=== PATIENT | female | born 1985 | race Caucasian/White ===

== ENCOUNTER 2020-05-15 17:14 | Outpatient (CLI) | payer BC ==
[2020-05-15 18:14] LABS: ABSOLUTE EOSINOPHILS # (AUTO) 0.1 10^3/uL (0.0-0.6); ABSOLUTE LYMPHOCYTES (AUTO) 1.9 10^3/uL (0.5-4.7); ABSOLUTE MONOCYTES (AUTO) 0.7 10^3/uL (0.1-1.4); ABSOLUTE NEUT (AUTO) 8.9 10^3/uL (1.7-8.2); BASOPHILS % (AUTO) 0.3 % (0-2); EOSINOPHILS % (AUTO) 0.9 % (0-6); HEMATOCRIT 32.4 % (36.0-47.0); HEMOGLOBIN 11.2 g/dL (12.0-15.5); MEAN CORPUSCULAR HEMOGLOBIN 30.4 pg (27.0-33.4); MEAN CORPUSCULAR HGB CONC 34.6 g/dL (32.0-36.0); MEAN CORPUSCULAR VOLUME 88 fl (80-97); MONOCYTES % (AUTO) 5.9 % (3-13); PLATELET COUNT 146 10^3/uL (150-450); RED CELL DISTRIBUTION WIDTH 13.1 % (11.5-14.0); SEGMENTED NEUTROPHILS % (AUTO) 76.9 % (42-78); TOTAL CELLS COUNTED % (AUTO) 100 %; WHITE BLOOD COUNT 11.6 10^3/uL (4.0-10.5)
[2020-05-15 18:30] LABS: ALBUMIN 3.5 g/dL (3.5-5.0); ALKALINE PHOSPHATASE 318 U/L (38-126); ANION GAP 7 (5-19); ASPARTATE AMINO TRANSFERASE 128 U/L (14-36); BILIRUBIN,DIRECT 0.3 mg/dL (0.0-0.4); BILIRUBIN,TOTAL 0.5 mg/dL (0.2-1.3); BLOOD UREA NITROGEN 7 mg/dL (7-20); CALCIUM 9.3 mg/dL (8.4-10.2); CARBON DIOXIDE 23 mmol/L (22-30); CHLORIDE 104 mmol/L (98-107); GLUCOSE 123 mg/dL (75-110); POTASSIUM 3.7 mmol/L (3.6-5.0); TOTAL PROTEIN 6.7 g/dL (6.3-8.2)
[2020-05-15 18:38] LABS: APPEARANCE,URINE SLIGHTLY-CLOUDY; BILIRUBIN,URINE NEGATIVE (NEGATIVE); COLOR,URINE YELLOW; GLUCOSE, URINE NEGATIVE (NEGATIVE); KETONES,URINE 20 mg/dL (NEGATIVE); LEUKOCYTE ESTERASE,URINE SMALL (NEGATIVE); NITRITE,URINE NEGATIVE (NEGATIVE); PROTEIN,URINE NEGATIVE (NEGATIVE); URINE SPECIFIC GRAVITY 1.012; UROBILINOGEN,URINE NEGATIVE mg/dL (<2.0)
[2020-05-15 18:53] LABS: URINE AMPHETAMINES SCREEN NEGATIVE; URINE BARBITURATES SCREEN NEGATIVE; URINE BENZODIAZEPINES SCREEN NEGATIVE; URINE COCAINE SCREEN NEGATIVE; URINE MARIJUANA (THC) SCREEN NEGATIVE; URINE METHADONE SCREEN NEGATIVE; URINE PHENCYCLIDINE SCREEN NEGATIVE
--- NOTE | 2020-05-15 19:08 | Non Stress Test Report ---
Non Stress Test Datetime Report Generated by CPN: 05/15/2020 19:08 DEMOGRAPHIC EGA NST: 37.1 INDICATION Indication for Study (NST) Other: IUP at 37.1 VITAL SIGNS Temperature - NST: 97.3 Pulse - NST: 109 RESP - NST: 18 NBPSYS NST: 119 NBPDIA NST: 76 MONITORING Monitor Explained: Monitor Explained; Test Explained; Patient Verbalized Understanding Time on Monitor: 05/15/2020 17:33 Time off Monitor: 05/15/2020 18:50 NST Duration: 77 NST INTERVENTIONS NST Interventions: PO Hydration Physician Notified NST: Dr. Tan BABY A: [id number] BABY A Movement : Present Contraction Frequency : Irreg FHR Baseline : 130 Accelerations : 15X15 Decelerations : None Variability : Moderate 6-25bpm NST Review: Meets Criteria for Reactive NST NST Review and Verified By : SAutry NST Results: Reactive NST COMMENTS NST Comments: Dr. Tan reviewed strip NST REPORT Report Trigger: Send Report
[2020-05-15 20:50] LABS: CHLAM PCR NOT DETECTED (NOT DETECT)
[2020-05-17 06:37] LABS: HEPATITIS C VIRUS AB <0.1 s/co ratio (0.0-0.9)
[2020-05-17 07:44] LABS: HEPATITS B SURFACE ANTIGEN Negative (Negative)
== END 2020-05-15 19:37 | disposition home or self-care (01) ==
LOC: LC 17:14
PROVIDERS: ATTEND Obstetrics & Gynecology
DX: O47.1 False labor at or after 37 completed weeks of gestation (principal); Z88.1 Allergy status to other antibiotic agents; Z87.891 Personal history of nicotine dependence; Z3A.37 37 weeks gestation of pregnancy; Z91.018 Allergy to other foods; Z11.4 Encounter for screening for human immunodeficiency virus [HIV]
CPT/HCPCS: 36415; 59025; 80053; 80307; 81005; 82239; 85025; 86592; 86701; 86762; 86803; 86804; 87081; 87340; 87491; 87591

== ENCOUNTER 2020-05-16 07:45 | Inpatient (IN) | payer BC ==
[2020-05-16] MEDS ORDERED: RINGERS SOLUTION,LACTATED 500 ML IV ONE (08:10)
[2020-05-16] MEDS ORDERED: PENICILLIN G POTASSIUM 5,000,000 UNIT in DEXTROSE 5%-WATER 100 ML IV ONE (08:10)
[2020-05-16] MEDS ORDERED: RINGERS SOLUTION,LACTATED 1,000 ML IV ONE (08:10)
[2020-05-16 08:49] LABS: AMORPHOUS SEDIMENT,URINE TRACE /HPF; APPEARANCE,URINE CLOUDY; BILIRUBIN,URINE NEGATIVE (NEGATIVE); COLOR,URINE YELLOW; GLUCOSE, URINE NEGATIVE (NEGATIVE); KETONES,URINE NEGATIVE (NEGATIVE); LEUKOCYTE ESTERASE,URINE NEGATIVE (NEGATIVE); NITRITE,URINE NEGATIVE (NEGATIVE); PROTEIN,URINE NEGATIVE (NEGATIVE); URINE SPECIFIC GRAVITY 1.008; UROBILINOGEN,URINE NEGATIVE mg/dL (<2.0)
[2020-05-16] MEDS ORDERED: PENICILLIN G-K 5 MILLION UNIT VIAL ONE (08:59)
[2020-05-16] MEDS ORDERED: OXYTOCIN 10 UNIT/ML VIAL ONE (08:59)
[2020-05-16] MEDS ORDERED: MISOPROSTOL 0.2 MG TABLET ONE (08:59)
[2020-05-16] MEDS ORDERED: LIDOCAINE 1% INJ-PF (10 MG/ML) 30 ML SDV ONE (08:59)
[2020-05-16] MEDS ORDERED: OXYTOCIN/0.9 % SODIUM CHLORIDE 30 UNIT/500 ML RTUINJ ONE (08:59)
[2020-05-16] MEDS ORDERED: OXYTOCIN/0.9 % SODIUM CHLORIDE 30 UNIT/500 ML RTUINJ IV PRN (09:01)
[2020-05-16 09:20] LABS: URINE AMPHETAMINES SCREEN NEGATIVE; URINE BENZODIAZEPINES SCREEN NEGATIVE; URINE COCAINE SCREEN NEGATIVE; URINE MARIJUANA (THC) SCREEN NEGATIVE; URINE METHADONE SCREEN NEGATIVE; URINE PHENCYCLIDINE SCREEN NEGATIVE
[2020-05-16 09:23] LABS: URINE BARBITURATES SCREEN NEGATIVE
[2020-05-16 09:26] LABS: ABSOLUTE EOSINOPHILS # (AUTO) 0.2 10^3/uL (0.0-0.6); ABSOLUTE LYMPHOCYTES (AUTO) 1.7 10^3/uL (0.5-4.7); ABSOLUTE MONOCYTES (AUTO) 0.9 10^3/uL (0.1-1.4); ABSOLUTE NEUT (AUTO) 7.6 10^3/uL (1.7-8.2); BASOPHILS % (AUTO) 0.4 % (0-2); EOSINOPHILS % (AUTO) 1.5 % (0-6); HEMOGLOBIN 10.8 g/dL (12.0-15.5); MEAN CORPUSCULAR HEMOGLOBIN 30.4 pg (27.0-33.4); MEAN CORPUSCULAR HGB CONC 34.9 g/dL (32.0-36.0); MEAN CORPUSCULAR VOLUME 87 fl (80-97); PLATELET COUNT 133 10^3/uL (150-450); RED BLOOD COUNT 3.57 10^6/uL (3.72-5.28); RED CELL DISTRIBUTION WIDTH 12.8 % (11.5-14.0); SEGMENTED NEUTROPHILS % (AUTO) 73.1 % (42-78); TOTAL CELLS COUNTED % (AUTO) 100 %; WHITE BLOOD COUNT 10.4 10^3/uL (4.0-10.5)
--- NOTE | 2020-05-16 09:30 | Admission Physical ---
Datetime Report Generated by CPN: 05/16/2020 09:30 CURRENT ADMISSION Chief Complaint: Sent from OB Office for Evaluation and Treatment - Please Specify Chief Complaint Other: itching all over Indication for Induction: Other Indication for Induction- Other: cholestasis of Admit Impression : Term, Intrauterine ; No Active Labor Admit Plan: Admit to Unit; Initiate Labor Induction Protocol ALLERGIES Medication Allergies: Yes Medication Allergies: Sulfa (Sulfonamide Antibiotics) (05/16/2020); pistachio nut (05/16/2020) Latex: No Latex Allergies OBSTETRICAL HISTORY EDC: 06/04/2020 00:00 : 3 Para: 1 Term: 1 : 0 SAB: 0 IAB: 1 Ectopic: 0 Livin Cesareans: 0 VBACs: 0 Multiple Births: 0 Gestational Diabetes: No Rh Sensitization: No Incompetent Cervix: No SHERRY: No Infertility: No ART Treatment: No Uterine Anomaly: No IUGR: No Hx Previous C/S: No Macrosomia: No Hx Loss/Stillborn: No PIH: No Hx : No Placenta Previa/Abruption: No Depression/PP Depression: No PTL/PROM: No Post Hemorrhage: No Current Procedures: Ultrasound Obstetrical History Comments: G1-EAB G2- at 37.1 G3-Current SEE RECORDS Alcohol: No Marijuana : No Cocaine: No Other Illicit Drugs: No Cigarettes: Former Smoker. [id number] MEDICAL HISTORY Diabetes: No Blood Transfusion: No Pulmonary Disease (Asthma, TB): No Breast Disease: No Hypertension: No Enterprise Software Engineer Surgery: No Heart Disease: No Hosp/Surgery: No Autoimmune Disorder: Yes Anesthetic Complications: No Kidney Disease: No Abnormal Pap Smear: No Neuro/Epilepsy: No Psychiatric Disorders: No Other Medical Diseases: No Hepatitis/Liver Disease: No Significant Family History: No Varicosities/Phlebitis: No Trauma/Violence : No Thyroid Dysfunction: Yes Medical History Comments: Graves disease; INFECTIOUS HISTORY Gonorrhea: No Genital Herpes: No Chlamydia: No Tuberculosis: No Syphilis: No Hepatitis: No HIV/AIDS Exposure: No Rash or Viral Illness: No HPV: Yes PHYSICAL EXAM General: Normal HEENT: Normal Neurologic: Normal Thyroid: Deferred Heart: Normal Lungs: Normal Breast: Deferred Back: Normal Abdomen: Normal Genitourinary Exam: Normal Extremities: Normal DTRs: Deferred Pelvic Type: Adequate Physical Exam Comments: pelvis proven to 6#13 Vital Signs: Reviewed VAGINAL EXAM Dilatation: 2 Effacement: 75 Station: -2 Contraction Comments: irreg MEMBRANES Pooling: Negative Membranes: Intact FETUS A EGA: 37.2 Monitoring: External US FHR- Baseline: 135 Variability: Moderate 6-25bpm Accelerations: 15X15 Decelerations: None Estimated Weight (gm): 3200 Presentation: Vertex Presentation- Other: by SVE Admit Comment: usually seen at [facility], started c/o itching last week and had elevated bile acids. sent for labs yesterday and found to have elevated liver enzymes. GBS pending, agrees to prophylaxis and induction of labor. P: start pitocin and penicillin, anticipate PLANS FOR LABOR AND DELIVERY Labor and Delivery: None Pain Management: Natural Feeding Preference: Breast Benefit of Breast Feed Discussed: Yes Circumcision: N/A INFORMED CONSENT Assignment: Wong Thompson MD Signature: with User ID: [email or web address] : with User ID: [email or web address]
[2020-05-16 09:42] LABS: ALBUMIN 3.2 g/dL (3.5-5.0); ALKALINE PHOSPHATASE 287 U/L (38-126); ANION GAP 6 (5-19); ASPARTATE AMINO TRANSFERASE 103 U/L (14-36); BILIRUBIN,DIRECT 0.3 mg/dL (0.0-0.4); BILIRUBIN,TOTAL 0.5 mg/dL (0.2-1.3); BLOOD UREA NITROGEN 5 mg/dL (7-20); CALCIUM 9.4 mg/dL (8.4-10.2); CARBON DIOXIDE 22 mmol/L (22-30); CHLORIDE 106 mmol/L (98-107); GLUCOSE 92 mg/dL (75-110); POTASSIUM 3.8 mmol/L (3.6-5.0); TOTAL PROTEIN 6.3 g/dL (6.3-8.2); URIC ACID 3.2 mg/dL (2.5-6.2)
[2020-05-16] MEDS: PENICILLIN G POTASSIUM 2,500,000 UNIT in DEXTROSE 5%-WATER 50 ML IV SCH ×3 (12:57→21:18)
[2020-05-16] MEDS ORDERED: DINOPROSTONE 10 MG VAGINAL INSERT.SR PV PRN (16:57)
[2020-05-16] MEDS ORDERED: DINOPROSTONE 10 MG VAGINAL INSERT.SR ONE (18:06)
[2020-05-16] MEDS ORDERED: ZOLPIDEM TARTRATE 5 MG TABLET PO PRN (18:23)
[2020-05-16] MEDS ORDERED: HYDROXYZINE PAMOATE 50 MG CAPSULE PO ONE (18:23)
[2020-05-16] MEDS ORDERED: HYDROXYZINE PAMOATE 50 MG CAPSULE ONE (18:26)
[2020-05-16] MEDS ORDERED: RINGERS SOLUTION,LACTATED 1,000 ML IV PRN (19:00)
[2020-05-16] MEDS ORDERED: ZOLPIDEM TARTRATE 5 MG TABLET ONE (20:28)
[2020-05-16] MEDS ORDERED: MAG HYDROX/AL HYDROX/SIMETH SUSP 30 ML UDCUP ONE (20:29)
[2020-05-16] MEDS ORDERED: MAG HYDROX/AL HYDROX/SIMETH SUSP 30 ML UDCUP PO ONE (20:31)
[2020-05-17] MEDS: PENICILLIN G POTASSIUM 2,500,000 UNIT in DEXTROSE 5%-WATER 50 ML IV SCH ×3 (00:39→08:45)
[2020-05-17] MEDS ORDERED: OXYTOCIN/0.9 % SODIUM CHLORIDE 30 UNIT/500 ML RTUINJ ONE (04:34)
[2020-05-17] MEDS ORDERED: OXYTOCIN/0.9 % SODIUM CHLORIDE 30 UNIT/500 ML RTUINJ IV PRN ×2 (06:00→14:15)
--- NOTE | 2020-05-17 11:33 | L&D Progress Notes ---
PROGRESS NOTES Datetime Report Generated by CPN: 05/17/2020 11:33 PROGRESS NOTE Impression: Normal Progression of Labor Procedures: Artificial ROM; Sterile Vag Exam Plan: Induction Vital Signs : Reviewed; Within Normal Limits Comment: here for IOL due to cholestasis in w/ elevated liver enzymes. Pt on day #2 of IOL, doing well, no complaints, Pitocin infusing, GBS negative. VE 3/50/-2. AROM w/ moderate meconium stained fluid. Will plan to recheck CBC/ CMP and watch labwork. Pt may have an epidural if she desires. Continue w/ Pitocin. Attending MD is Dr Mclain. VAGINAL EXAM Dilatation: 2 Effacement: 75 Station: -2 Contractions: irreg LAST VAGINAL EXAM-NURSING Nursing Exam Dilitation: 3.0 Nursing Exam Effacement: 50 Nursing Exam Station: -2 Nursing Exam Contractions: artifact present MEMBRANES Pooling: Negative Membranes: Ruptured Amniotic Fluid Color: Meconium, Heavy FETUS A FHR - Baseline: 140 Monitoring: External US Variability: Moderate 6-25bpm Accelerations: 15X15 Decelerations: None FHR Category: Category I : 37w2d Estimated Weight (gm): 3200 Presentation: Vertex Presentation- Other: by SVE SIGNATURE SIGNATURE: [id number];[id number];[id number] Assignment: Ara Mclain MD Signature: with User ID: [email or web address] : with User ID: [email or web address]
[2020-05-17 11:49] LABS: ABSOLUTE BASOPHILS # (AUTO) 0.1 10^3/uL (0.0-0.2); ABSOLUTE EOSINOPHILS # (AUTO) 0.1 10^3/uL (0.0-0.6); ABSOLUTE LYMPHOCYTES (AUTO) 1.8 10^3/uL (0.5-4.7); ABSOLUTE MONOCYTES (AUTO) 0.8 10^3/uL (0.1-1.4); ABSOLUTE NEUT (AUTO) 8.2 10^3/uL (1.7-8.2); BASOPHILS % (AUTO) 0.7 % (0-2); EOSINOPHILS % (AUTO) 1.3 % (0-6); HEMATOCRIT 32.2 % (36.0-47.0); HEMOGLOBIN 11.1 g/dL (12.0-15.5); LYMPHOCYTES % (AUTO) 16.1 % (13-45); MEAN CORPUSCULAR HEMOGLOBIN 30.3 pg (27.0-33.4); MEAN CORPUSCULAR HGB CONC 34.6 g/dL (32.0-36.0); MEAN CORPUSCULAR VOLUME 88 fl (80-97); MONOCYTES % (AUTO) 7.4 % (3-13); PLATELET COUNT 140 10^3/uL (150-450); RED BLOOD COUNT 3.67 10^6/uL (3.72-5.28); RED CELL DISTRIBUTION WIDTH 13.4 % (11.5-14.0); SEGMENTED NEUTROPHILS % (AUTO) 74.5 % (42-78); TOTAL CELLS COUNTED % (AUTO) 100 %; WHITE BLOOD COUNT 10.9 10^3/uL (4.0-10.5)
[2020-05-17] MEDS ORDERED: HYDROXYZINE PAMOATE 50 MG CAPSULE PO ONE (12:08)
[2020-05-17] MEDS ORDERED: HYDROXYZINE PAMOATE 50 MG CAPSULE ONE (12:10)
[2020-05-17 12:15] LABS: ALBUMIN 3.3 g/dL (3.5-5.0); ALKALINE PHOSPHATASE 359 U/L (38-126); ANION GAP 5 (5-19); ASPARTATE AMINO TRANSFERASE 106 U/L (14-36); BILIRUBIN,DIRECT 0.5 mg/dL (0.0-0.4); BILIRUBIN,TOTAL 0.9 mg/dL (0.2-1.3); BLOOD UREA NITROGEN 7 mg/dL (7-20); CALCIUM 8.9 mg/dL (8.4-10.2); CARBON DIOXIDE 24 mmol/L (22-30); CHLORIDE 103 mmol/L (98-107); GLUCOSE 86 mg/dL (75-110); POTASSIUM 4.1 mmol/L (3.6-5.0); TOTAL PROTEIN 6.6 g/dL (6.3-8.2)
[2020-05-17] MEDS ORDERED: EPHEDRINE SULFATE INJ 50 MG/1 ML AMPULE ONE (13:23)
[2020-05-17] MEDS ORDERED: FENTANYL/BUPIVACAINE/NS/PF 0 MCG/0 ML RTUINJ EPI ONE (13:23)
[2020-05-17] MEDS ORDERED: ROPIVACAINE HCL 0.2% INJ/PF (2 MG/ML) 20 ML SDV ONE (13:24)
[2020-05-17] MEDS ORDERED: DIPH/PERTUSS(ACELL)/TETANUS VAC/PF 0.5 ML SYR (>=10YO) IM PRN (14:15)
[2020-05-17] MEDS ORDERED: DIBUCAINE 1% OINTMENT 28 GM TP PRN (14:15)
[2020-05-17] MEDS ORDERED: ACETAMINOPHEN WITH CODEINE #3 TABLET PO PRN ×2 (14:15)
[2020-05-17] MEDS ORDERED: ZOLPIDEM TARTRATE 5 MG TABLET PO PRN (14:15)
[2020-05-17] MEDS ORDERED: MEASLES,MUMPS&RUBELLA VACC/PF 0.5 ML VIAL SUBCUT PRN (14:15)
[2020-05-17] MEDS ORDERED: ACETAMINOPHEN 325 MG TABLET PO PRN (14:15)
[2020-05-17] MEDS ORDERED: MAGNESIUM HYDROXIDE SUSP 30 ML UDCUP PO PRN (14:15)
[2020-05-17] MEDS ORDERED: VARICELLA VACC/PF (1350 UNIT/0.5 ML) 0.5 ML VIAL SUBCUT PRN (14:15)
[2020-05-17] MEDS ORDERED: FAMOTIDINE 20 MG TABLET PO PRN (14:15)
[2020-05-17] MEDS ORDERED: ACETAMINOPHEN 650 MG SUPP.RECT PR PRN (14:15)
[2020-05-17] MEDS ORDERED: DIPHENHYDRAMINE HCL 25 MG CAPSULE PO PRN (14:15)
[2020-05-17] MEDS ORDERED: PSEUDOEPHEDRINE HCL 30 MG TABLET PO PRN (14:15)
[2020-05-17] MEDS ORDERED: BENZOCAINE/MENTHOL AEROSOL SPRAY 56 ML TOP PRN (14:15)
[2020-05-17] MEDS ORDERED: GLYCERIN/WITCH HAZEL LEAF 1 EACH MED..WIPE TP PRN (14:15)
[2020-05-17] MEDS ORDERED: MAG HYDROX/AL HYDROX/SIMETH SUSP 30 ML UDCUP PO PRN (14:15)
[2020-05-17] MEDS ORDERED: IBUPROFEN 800 MG TABLET ONE (14:35)
[2020-05-17] MEDS: IBUPROFEN 800 MG TABLET PO SCH ×2 (14:37→21:33)
--- NOTE | 2020-05-17 15:57 | Delivery Summary ---
Del Sum A-C Datetime Report Generated by CPN: 05/17/2020 15:57 DELIVERY PERSONNEL DELIVERY PERSONNEL: [id number] Delivery Doctor:: Rachel Horton CNM Labor and Delivery Nurse:: Tasha Aldrich RNrn oncology Nurse:: MARTIN Brambila Nursery Nurse:: Carmen Mckinley RN Nursery Nurse:: Maureen Miranda RN Stock Replenisher/DRUMS TEACHER: Indigo Reyna, DAIRY DEPARTMENT MANAGER MATERNAL INFORMATION Delivery Anesthesia: None Medications After Delivery: Pitocin 30 Units in 500ml NS/D5W Maternal Complications: Other Complication Details: cholestasis Provider Comments: of VFI, NC x 1, easily reduced. Baby vigorous and attempting to cry. Placed on pts abdoman, mouth bulb suctioned. NBN at bedside. Cord clamped and cut after one minute. Cord blood collected. Placenta S/C/I w/ meconium staining noted. Will send to pathology. hemostatic 1st degree laceration, no repair needed. FF w/ decreased lochia, IV Pitocin infusing. Apgars 8,9. Mother and baby in stable condition, plans to breastfeed. Attending MD is Dr Mclain LABOR SUMMARY EDC: 06/04/2020 00:00 No. Babies in Womb: 1 Attempted: No Labor Anesthesia: None LABOR INFORMATION Reason for Induction: Other Reason for Induction- Other: cholestasis Onset of Labor: 05/17/2020 10:30 Complete Dilatation: 05/17/2020 13:35 Cervical Ripening Agents: Cervidil Oxytocin: Induction Group B Beta Strep: 1 NO GROUP B STREPTOCOCCUS RECOVERED Antibiotics Time of Last Dose: 05/17/2020 08:45 Name of Antibiotic Given: Penicillin G Steroids Given: None Reason Steroids Not Administered: Not Applicable MEMBRANES Membranes Rupture Method: Artificial Rupture of Membranes: 05/17/2020 11:21 Length of Rupture (hr): 2.75 Amniotic Fluid Color: Moderate Meconium Amniotic Fluid Amount: Moderate Amniotic Fluid Odor: Normal STAGES OF LABOR Stage 1 hr: 3 Stage 1 min: 5 Stage 2 hr: 0 Stage 2 min: 31 Stage 3 hr: 0 Stage 3 min: 4 Total Time in Labor hr: 3 Total Time in Labor min: 40 VAGINAL DELIVERY Episiotomy: None Laceration #1: Perineal Laceration Extension #1: First Degree Laceration Repair: No Laceration Repair Note: no repair needed, hemostatic Sponge Count Correct: N/A Sharps Count Correct: N/A CSECTION DELIVERY Primary Indication: N/A Secondary Indication: N/A CSection Incidence: N/A Labor: N/A Elective: N/A CSection Incision: N/A BABY A INFORMATION Infant Delivery Date/Time: 05/17/2020 14:06 Method of Delivery: Vaginal Nurse Controlled Delivery: No Born in Route : No : N/A Forceps: N/A Vacuum Extraction: N/A Shoulder Dystocia : No PRESENTATION/POSITION BABY A Presentation: Cephalic Cephalic Presentation: Vertex Breech Presentation: N/A PLACENTA INFORMATION BABY A Placenta Delivery Time : 05/17/2020 14:10 Placenta Method of Delivery: Spontaneous Placenta Status: Delivered SCORES BABY A Heart Rate 1 min: >100 bpm Resp Effort 1 min: Good Cry Reflex Irritability 1 min: Cough or Sneeze or Pulls Away Muscle Tone 1 min: Active Motion Color 1 min: Blue/Pale SCORE 1 MIN: 8 Heart Rate 5 min: >100 bpm Resp Effort 5 min: Good Cry Reflex Irritability 5 min: Cough or Sneeze or Pulls Away Muscle Tone 5 min: Active Motion Color 5 min: Body [place], Extremities Blue SCORE 5 MIN: 9 INFANT INFORMATION BABY A Gestational Age at Delivery: 37.3 Gestational Status: Early Term- 37- 38.6 Weeks Infant Outcome : Liveborn Infant Condition : Stable Sex: Female IDENTIFICATION BABY A Infant Verification Date/Time: 05/17/2020 14:36 ID Band Number: [id number] Mother's Name Verified: Yes RN Verifying Infant: Whitney Cohen RN Additional Verifying Personnel: Anand Aldrich RN WEIGHT/LENGTH BABY A Birthweight (gm): 3320 Weight (lb): 7 Weight (oz): 5 Length (in): 20.00 Length (cm): 50.80 CORD INFORMATION BABY A No. Cord Vessels: 3 Nuchal Cord : Around Neck x1, Loose Cord Blood Taken: Yes-For Storage (Mom's Blood type +) Suction: Mouth; Nose; Pharynx ASSESSMENT BABY A Infant Respirations: Appears Normal Skin to Skin: Yes Nail Tech/ALS Called : No Care By: Nursery Nurse Transferred To: Remains with Mother BABY B INFORMATION : N/A SIGNATURES Assignment: Ara Mclain MD Signature: with User ID: [email or web address] : with User ID: [email or web address] : I was personally available for consultation and serving as supervising physician for the MLP.
--- NOTE | 2020-05-17 15:57 | Birth Certificate Data ---
Cert Data Datetime Report Generated by CPN: 05/17/2020 15:57 CERTIFICATE DATA Delivery Provider: Rachel Horton CNM (05/15/2020 17:34:Tasha Aldrich RN) 47a. Care: Yes (05/15/2020 17:34:Mony Worthy RN) 47b. Date of First Visit: 01/05/2020 00:00 (05/15/2020 17:34:Mony Worthy RN) 47c. Date of Last Visit: 05/15/2020 00:00 (05/15/2020 17:34:Mony Worthy RN) 47d. Number of Visits: 11 (05/15/2020 17:34:Mony Worthy RN) 48a. Number of Prev Live Births: 1 (05/15/2020 17:34:Mony Worthy RN) 48b. Now Livin (05/15/2020 17:34:Mony Worthy RN) 48c. Live Births Now : 0 (05/15/2020 17:34:QS system process) 48d. Date of Last Live : 10/29/2014 00:00 (05/15/2020 17:34:Mony Worthy RN) 48e. Losses: 1 (05/15/2020 17:34:Mony Worthy RN) 48f. Date of Last Preg Loss: 04/11/2009 00:00 (05/15/2020 17:34:Mony Worthy RN) RISK FACTORS IN THIS 49a. Diabetes: No (05/15/2020 17:34:Mony Worthy RN) 49b. Hypertension: No (05/15/2020 17:34:Mony Worthy RN) 49c. Previous Births: 0 (05/15/2020 17:34:Mony Worthy RN) 49d. Stillborns: No (05/15/2020 17:34:Mony Worthy RN) 49d. IUGR: No (05/15/2020 17:34:Mony Worthy RN) 49e. Infertility Treatment: No (05/15/2020 17:34:Mony Worthy RN) 49f. Previous Cesareans: 0 (05/15/2020 17:34:Mony Worthy RN) Mother's Height 50b. Height Inches: 68 (05/17/2020 14:41:QS system process) Mother's Weight 51a. Pre- Weight (lbs): 133 (05/15/2020 17:34:Mony Worthy RN) 51b. Weight at Delivery (lbs): 161 (05/16/2020 07:58:QS system process) 52. Dt Last Normal Menses Began: 09/04/2019 00:00 (05/15/2020 17:34:oMny Worthy RN) Infections Present/Treated 53a. Gonorrhea: No (05/15/2020 17:34:Mony Worthy RN) Results this Hospital Visit : Negative (05/15/2020 17:34:Mony Worthy RN) 53b. Syphilis: No (05/15/2020 17:34:Mony Worthy RN) Results this Hospital Visit: NONREACTIVE (05/15/2020 17:45:QS system process) 53c. Chlamydia: No (05/15/2020 17:34:Mony Worthy RN) Results this Hospital Visit: Negative (05/15/2020 17:34:Mony Worthy RN) 53d. Hepatitis B: No (05/15/2020 17:34:Mony Worthy RN) 53h. Mother Tested for HBsAG: Yes (05/15/2020 17:34:Mony Worthy RN) 53i. Date Tested: 05/15/2020 00:00 (Annotations: Data stored by [facility] on behalf of user) (05/15/2020 17:34:Mony Worthy RN) Obstetric Procedures 54a, b, c. Obstetric Procedures: Ultrasound (05/15/2020 17:34:Mony Worthy RN) Cigarette Smoking Cigarette Smoking: Former Smoker. [id number] (05/15/2020 17:34:Mony Worthy RN) 55a. 3 Months Before Preg - Ci (05/15/2020 17:34:Mony Worthy RN) 55b. 1st Trimester of Preg- Ci (05/15/2020 17:34:Mony Worthy RN) 55c. 2nd Trimester of Preg- Ci (05/15/2020 17:34:Mony Worthy RN) 55d. 3rd Trimester of Preg- Ci (05/15/2020 17:34:Mony Worthy RN) Onset of Labor 56a. PROM >12 Hrs: 2.75 (05/15/2020 17:34:QS system process) 56b. Precipitous Labor <3 Hrs: 3 (05/15/2020 17:34:QS system process) 56c. Prolonged Labor > 20 Hrs: 3 (05/15/2020 17:34:QS system process) 57a. Induction of Labor: Induction (05/15/2020 17:34:Mony Worthy RN) 57a. Induction of Labor: Cervidil (05/16/2020 18:16:Mony Worthy RN) 57c. Non-Vertex Presentation A: Vertex (05/15/2020 17:34:Tasha Aldrich RN) 57d. Steroids - Lung Mat: None (05/15/2020 17:34:Mony Worthy RN) 57d. Steroids - Lung Mat: Not Applicable (05/15/2020 17:34:Mony Worthy RN) 57e. Antibiotics During Labor: 05/17/2020 08:45 (05/15/2020 17:34:Tasha Aldrich RN) 57f. Mat [place] or Temp >100.4: 98.7 (05/15/2020 17:34:Tasha Aldrich RN) 57g. Moderate/Heavy Meconium: Moderate Meconium (05/17/2020 11:46:Tasha Aldrich RN) 57h. Intolerance of Labor: N/A (05/15/2020 17:34:Tasha Aldrich RN) : N/A (05/15/2020 17:34:Tasha Aldrich RN) 57i. Epidural/Spinal Anesthesia: None (05/15/2020 17:34:Tasha Aldrich RN) Method of Delivery 58a. Forceps - Unsuccessful A: N/A (05/15/2020 17:34:Tasha Aldrich RN) 58b. Vacuum - Unsuccessful A: N/A (05/15/2020 17:34:Tasha Aldrich RN) 58c. Presentation at 58c. Presentation at - A : Vertex (05/15/2020 17:34:Tasha Aldrich RN) 58c. Presentation at - A : N/A (05/15/2020 17:34:Tasha Aldrich RN) 58c. Presentation at - A : Cephalic (05/15/2020 17:34:Tasha Aldrich RN) Final Route and Method of Del 58d. Baby A Route/Delivery: Vaginal (05/17/2020 14:06:Tasha Aldrich RN) 58e. Trial of Labor Attempted: No (05/15/2020 17:34:Mony Worthy RN) 58e. Trial of Labor Attempted A: N/A (05/15/2020 17:34:Mony Worthy RN) 58e. Trial of Labor Attempted B: N/A (05/15/2020 17:34:Mony Worthy RN) Maternal Morbidity 59b. 3rd or 4th Degree Lacs: Perineal (05/15/2020 17:34:Racehl Horton, CNM) Birthweight Baby A: 3320 (05/15/2020 17:34:Tasha Aldrich RN) 60a. Pounds : 7 (05/15/2020 17:34:QS system process) 60b. Ounces: 5 (05/15/2020 17:34:QS system process) 61. GA at Delivery Baby A: 37.3 (05/15/2020 17:34:Tasha Aldrich RN) : Early Term- 37- 38.6 Weeks (05/15/2020 17:34:QS system process) 62a. 5 Minute Baby A: 9 (05/15/2020 17:34:QS system process)
[2020-05-17] MEDS: FERROUS SULFATE 325 MG TABLET PO SCH (18:12)
[2020-05-17] MEDS: DOCUSATE SODIUM 100 MG CAPSULE PO SCH (18:12)
[2020-05-17] MEDS ORDERED: URSODIOL 300 MG CAPSULE PO ONE (22:15)
[2020-05-17] MEDS ORDERED: URSODIOL 300 MG CAPSULE ONE (23:06)
[2020-05-18] MEDS: IBUPROFEN 800 MG TABLET PO SCH ×3 (06:04→21:42)
[2020-05-18 08:36] LABS: HEMOGLOBIN 10.8 g/dL (12.0-15.5); MEAN CORPUSCULAR HEMOGLOBIN 30.4 pg (27.0-33.4); MEAN CORPUSCULAR HGB CONC 34.6 g/dL (32.0-36.0); MEAN CORPUSCULAR VOLUME 88 fl (80-97); PLATELET COUNT 146 10^3/uL (150-450); RED BLOOD COUNT 3.54 10^6/uL (3.72-5.28); WHITE BLOOD COUNT 13.1 10^3/uL (4.0-10.5)
[2020-05-18 08:59] LABS: ALBUMIN 2.8 g/dL (3.5-5.0); ALKALINE PHOSPHATASE 301 U/L (38-126); ANION GAP 6 (5-19); ASPARTATE AMINO TRANSFERASE 85 U/L (14-36); BILIRUBIN,DIRECT 0.5 mg/dL (0.0-0.4); BILIRUBIN,TOTAL 0.5 mg/dL (0.2-1.3); BLOOD UREA NITROGEN 6 mg/dL (7-20); CALCIUM 8.6 mg/dL (8.4-10.2); CARBON DIOXIDE 20 mmol/L (22-30); CHLORIDE 109 mmol/L (98-107); GLUCOSE 114 mg/dL (75-110); POTASSIUM 4.4 mmol/L (3.6-5.0); TOTAL PROTEIN 5.5 g/dL (6.3-8.2)
[2020-05-18] MEDS: URSODIOL 300 MG CAPSULE PO SCH ×3 (09:23→18:36)
[2020-05-18] MEDS: SENNOSIDES/DOCUSATE 8.6-50 MG 1 EACH TABLET PO SCH (09:23)
[2020-05-18] MEDS: PRENATAL VITAMIN W DHA CAPSULE PO SCH (09:24)
[2020-05-18] MEDS: FERROUS SULFATE 325 MG TABLET PO SCH ×2 (09:24→18:36)
[2020-05-18] MEDS: DOCUSATE SODIUM 100 MG CAPSULE PO SCH ×2 (09:24→18:36)
--- NOTE | 2020-05-18 10:04 | PDOC PROGRESS REPORT ---
Subjective Date:: 05/18/20 Subjective:: She reports that she is doing well today. Reason For Visit: /INDUCTION Physical Exam - Physical Exam Vital Signs: Temp Pulse Resp BP Pulse Ox 97.8 F 57 L 16 105/64 99 05/18/20 09:00 05/18/20 07:14 05/18/20 07:14 05/18/20 07:14 05/18/20 07:14 Intake & Output 05/17/20 05/18/20 05/19/20 06:59 06:59 06:59 Output Total 450 Balance -450 Weight 73 kg General appearance: PRESENT: no acute distress, well-developed, well-nourished Pulses: PRESENT: normal dorsalis pedis pul, +2 pedal pulses bilateral Vascular exam: PRESENT: normal capillary refill Result Laboratory Results: 05/18/20 07:52 05/18/20 07:52 05/17/20 05/17/20 05/18/20 11:30 11:30 07:52 WBC 10.9 H 13.1 H RBC 3.67 L 3.54 L Hgb 11.1 L 10.8 L Hct 32.2 L 31.0 L MCV 88 88 MCH 30.3 30.4 MCHC 34.6 34.6 RDW 13.4 13.0 Plt Count 140 L 146 L Seg Neutrophils % 74.5 Sodium 132.2 L Potassium 4.1 Chloride 103 Carbon Dioxide 24 Anion Gap 5 BUN 7 Creatinine 0.60 Est GFR ( Amer) > 60 Glucose 86 Calcium 8.9 Total Bilirubin 0.9 AST 106 H Alkaline Phosphatase 359 H Total Protein 6.6 Albumin 3.3 L 05/18/20 07:52 WBC RBC Hgb Hct MCV MCH MCHC RDW Plt Count Seg Neutrophils % Sodium 134.9 L Potassium 4.4 Chloride 109 H Carbon Dioxide 20 L Anion Gap 6 BUN 6 L Creatinine 0.59 Est GFR ( Amer) > 60 Glucose 114 H Calcium 8.6 Total Bilirubin 0.5 AST 85 H Alkaline Phosphatase 301 H Total Protein 5.5 L Albumin 2.8 L Impressions: She is doing well post day number one. Assessment & Plan - Time Time Spent with patient: 15-24 minutes Medications reviewed and adjusted accordingly: Yes Anticipated discharge: Home Anticipated DC Timeframe: within 24 hours
[2020-05-19] MEDS: IBUPROFEN 800 MG TABLET PO SCH (06:30)
[2020-05-19 08:25] VITALS: BP 109/64
[2020-05-19] MEDS: PRENATAL VITAMIN W DHA CAPSULE PO SCH (10:24)
[2020-05-19] MEDS: DOCUSATE SODIUM 100 MG CAPSULE PO SCH (10:24)
[2020-05-19] MEDS: URSODIOL 300 MG CAPSULE PO SCH (10:24)
[2020-05-19] MEDS: FERROUS SULFATE 325 MG TABLET PO SCH (10:24)
[2020-05-19] MEDS: SENNOSIDES/DOCUSATE 8.6-50 MG 1 EACH TABLET PO SCH (10:24)
--- NOTE | 2020-05-19 11:22 | PDOC DISCHARGE SUMMARY ---
Impression - Admit/DC Date/PCP Admission Date/Primary Care Provider: 05/16/20 07:45 Discharge Date: 05/19/20 - Discharge Diagnosis (1) 37 weeks gestation of Is this a current diagnosis for this admission?: Yes (2) Cholestasis during Is this a current diagnosis for this admission?: Yes (3) Elevated liver enzymes Is this a current diagnosis for this admission?: Yes (4) Encounter for induction of labor Is this a current diagnosis for this admission?: Yes (5) Normal vaginal delivery Is this a current diagnosis for this admission?: Yes (6) Obstetrical laceration Is this a current diagnosis for this admission?: Yes - Additional Information Discharge Diet: Regular Discharge Activity: Balance Activity w/Rest, Pelvic Rest Prescriptions: Ibuprofen [Motrin 800 mg Tablet] 800 mg PO Q8HP PRN #60 tablet PRN Reason: Home Medications: Pnv No.95/Ferrous Fum/Folic AC [ Caplet] 1 tab PO DAILY 05/15/20 Ibuprofen [Motrin 800 mg Tablet] 800 mg PO Q8HP PRN #60 tablet 05/19/20 Ursodiol [Actigall 300 mg Capsule] 300 mg PO TID capsule 05/19/20 Hospital Course 59. Maternal Morbidity (serious complications experinced by the mother associated with labor and delivery: None of the above Results Laboratory Results: WBC 13.1 10^3/uL (4.0-10.5) H 05/18/20 07:52 RBC 3.54 10^6/uL (3.72-5.28) L 05/18/20 07:52 Hgb 10.8 g/dL (12.0-15.5) L 05/18/20 07:52 Hct 31.0 % (36.0-47.0) L 05/18/20 07:52 MCV 88 fl (80-97) 05/18/20 07:52 MCH 30.4 pg (27.0-33.4) 05/18/20 07:52 MCHC 34.6 g/dL (32.0-36.0) 05/18/20 07:52 RDW 13.0 % (11.5-14.0) 05/18/20 07:52 Plt Count 146 10^3/uL (150-450) L 05/18/20 07:52 Lymph % (Auto) 16.1 % (13-45) 05/17/20 11:30 [place] % (Auto) 7.4 % (3-13) 05/17/20 11:30 Eos % (Auto) 1.3 % (0-6) 05/17/20 11:30 Baso % (Auto) 0.7 % (0-2) 05/17/20 11:30 Absolute Neuts (auto) 8.2 10^3/uL (1.7-8.2) 05/17/20 11:30 Absolute Lymphs (auto) 1.8 10^3/uL (0.5-4.7) 05/17/20 11:30 Absolute Monos (auto) 0.8 10^3/uL (0.1-1.4) 05/17/20 11:30 Absolute Eos (auto) 0.1 10^3/uL (0.0-0.6) 05/17/20 11:30 Absolute Basos (auto) 0.1 10^3/uL (0.0-0.2) 05/17/20 11:30 Seg Neutrophils % 74.5 % (42-78) 05/17/20 11:30 Sodium 134.9 mmol/L (137-145) L 05/18/20 07:52 Potassium 4.4 mmol/L (3.6-5.0) 05/18/20 07:52 Chloride 109 mmol/L (98-107) H 05/18/20 07:52 Carbon Dioxide 20 mmol/L (22-30) L 05/18/20 07:52 Anion Gap 6 (5-19) 05/18/20 07:52 BUN 6 mg/dL (7-20) L 05/18/20 07:52 Creatinine 0.59 mg/dL (0.52-1.25) 05/18/20 07:52 Est GFR ( Amer) > 60 (>60) 05/18/20 07:52 Est GFR (MDRD) Non-Af > 60 (>60) 05/18/20 07:52 Glucose 114 mg/dL (75-110) H 05/18/20 07:52 Uric Acid 3.2 mg/dL (2.5-6.2) 05/16/20 08:26 Calcium 8.6 mg/dL (8.4-10.2) 05/18/20 07:52 Total Bilirubin 0.5 mg/dL (0.2-1.3) 05/18/20 07:52 Direct Bilirubin 0.5 mg/dL (0.0-0.4) H 05/18/20 07:52 Neonat Total Bilirubin Not Reportable 05/18/20 07:52 Neonat Direct Bilirubin Not Reportable 05/18/20 07:52 Neonat Indirect Bili Not Reportable 05/18/20 07:52 AST 85 U/L (14-36) H 05/18/20 07:52 ALT 130 U/L (<35) H 05/18/20 07:52 Alkaline Phosphatase 301 U/L (38-126) H 05/18/20 07:52 Lactate Dehydrogenase 157 U/L (120-246) 05/16/20 08:26 Total Protein 5.5 g/dL (6.3-8.2) L 05/18/20 07:52 Albumin 2.8 g/dL (3.5-5.0) L 05/18/20 07:52 Urine Color YELLOW 05/16/20 07:58 Urine Appearance CLOUDY 05/16/20 07:58 Urine pH 7.0 (5.0-9.0) 05/16/20 07:58 Ur Specific [place] 1.008 05/16/20 07:58 Urine Protein NEGATIVE mg/dL (NEGATIVE) 05/16/20 07:58 Urine Glucose (UA) NEGATIVE mg/dL (NEGATIVE) 05/16/20 07:58 Urine Ketones NEGATIVE mg/dL (NEGATIVE) 05/16/20 07:58 Urine Blood NEGATIVE (NEGATIVE) 05/16/20 07:58 Urine Nitrite NEGATIVE (NEGATIVE) 05/16/20 07:58 Urine Bilirubin NEGATIVE (NEGATIVE) 05/16/20 07:58 Urine Urobilinogen NEGATIVE mg/dL (<2.0) 05/16/20 07:58 Ur Leukocyte Esterase NEGATIVE (NEGATIVE) 05/16/20 07:58 Urine WBC (Auto) 3 /HPF 05/16/20 07:58 Urine RBC (Auto) 3 /HPF 05/16/20 07:58 Urine Bacteria (Auto) 1+ /HPF 05/16/20 07:58 Squamous Epi Cells Auto 5 /HPF 05/16/20 07:58 Amorphous Sediment Auto TRACE /HPF 05/16/20 07:58 Urine Mucus (Auto) OCC /LPF 05/16/20 07:58 Urine Ascorbic Acid NEGATIVE (NEGATIVE) 05/16/20 07:58 Urine Opiates Screen NEGATIVE 05/16/20 07:58 Urine Methadone Screen NEGATIVE 05/16/20 07:58 Ur Barbiturates Screen NEGATIVE 05/16/20 07:58 Ur Phencyclidine Scrn NEGATIVE 05/16/20 07:58 Ur Amphetamines Screen NEGATIVE 05/16/20 07:58 U Benzodiazepines Scrn NEGATIVE 05/16/20 07:58 Urine Cocaine Screen NEGATIVE 05/16/20 07:58 U Marijuana (THC) Screen NEGATIVE 05/16/20 07:58 Blood Type O POSITIVE 05/16/20 08:26 Antibody Screen NEGATIVE 05/16/20 08:26 Plan Plan of Treatment: follow up with your piano sounding board matcher. call today
== END 2020-05-19 13:23 | disposition home or self-care (01) | DRG 805 ==
LOC: LR 07:45 → 2S 05-17 16:17
PROVIDERS: ADMIT Obstetrics & Gynecology Gynecology; ATTEND Obstetrics & Gynecology Gynecology
PROC: 10E0XZZ Delivery of Products of Conception, External Approach (ICD-10-PCS; principal; 2020-05-17)
PROC: 10907ZC Drainage of Amniotic Fluid, Therapeutic from Products of Conception, Via Natural or Artificial Opening (ICD-10-PCS; 2020-05-17)
DX: O26.62 Liver and biliary tract disorders in childbirth (principal); K83.1 Obstruction of bile duct; Z37.0 Single live birth; O77.0 Labor and delivery complicated by meconium in amniotic fluid; O99.824 Streptococcus B carrier state complicating childbirth; O69.81X0 Labor and delivery complicated by cord around neck, without compression, not applicable or unspecified; O70.0 First degree perineal laceration during delivery; Z3A.37 37 weeks gestation of pregnancy; Z28.21 Immunization not carried out because of patient refusal
CPT/HCPCS: 36415; 80053; 80307; 81001; 83615; 84550; 85025; 85027; 86850; 86900; 86901; 88307; J2540; J2590; J2795; J3010; J3490; J7060

== ENCOUNTER 2020-06-01 21:44 | Emergency (ER) | payer BC ==
[2020-06-01] MEDS ORDERED: LIDOCAINE 1% INJ-PF (10 MG/ML) 30 ML SDV INJ ONE (22:52)
[2020-06-01] MEDS ORDERED: CEFTRIAXONE INJ 1000 MG VIAL IM ONE (22:52)
[2020-06-01] MEDS ORDERED: ACETAMINOPHEN 325 MG TABLET PO ONE (22:55)
--- NOTE | 2020-06-01 22:55 | ER Document Report ---
ED Medical Screen (RME) - General Chief Complaint: Fever Stated Complaint: FEVER/HAD BABY X2 WEEKS AGO Time Seen by Provider: 06/01/20 22:48 Mode of Arrival: Ambulatory Information source: Patient Notes: 34-year-old female presented to ED for complaint of painful right breast. She states she does have mastitis and has been taking antibiotics since the childbirth. She does not have red inflamed breast at this time but both breasts are tender at all times more so when they are engorged. She states they are both engorged at this time and she is going to release them both at this time. She states she has been on Keflex for the last 3 days and her dose is due now I told her we would give her a shot of Rocephin at this time. Patient is alert oriented respirations regular nonlabored speaking in full sentences. Temperature is 100.5 at this time. She states she was febrile at home. I have greeted and performed a rapid initial assessment of this patient. A comprehensive ED assessment and evaluation of the patient, analysis of test results and completion of medical decision making process will be conducted by an additional ED providers. - Related Data Allergies/Adverse Reactions: pistachio nut Allergy (Verified 06/01/20 22:33) Sulfa (Sulfonamide Antibiotics) Allergy (Verified 06/01/20 22:33) Home Medications: KEFLEX. PRE-NATALS. JENNIFER 3 Past Medical History - Social History Frequency of alcohol use: None Drug Abuse: None Physical Exam - Vital signs Vitals: Temp Pulse BP Pulse Ox 100.5 F H 94 115/74 99 06/01/20 21:55 06/01/20 21:55 06/01/20 21:55 06/01/20 21:55 Course - Vital Signs Vital signs: Temp Pulse Resp BP Pulse Ox 100.5 F H 94 115/74 99 06/01/20 21:55 06/01/20 21:55 06/01/20 21:55 06/01/20 21:55
[2020-06-01] MEDS ORDERED: CLINDAMYCIN 600 MG/D5W RTU 600 MG/50 ML RTUPB IV ONE (23:46)
--- NOTE | 2020-06-02 00:11 | RADIOLOGY REPORT (SQ) ---
EXAM DESCRIPTION: US BREAST UNILATERAL LIMITED COMPLETED DATE/TME: 06/01/2020 23:50 CLINICAL HISTORY: 34 years, Female, Painful right breast with mastitis. abscess. COMPARISON: None. TECHNIQUE: Sonographic evaluation of the right breast from 8:00 to 11:00 and the right axilla was performed. Gupta scale imaging and Doppler imaging were performed. LIMITATIONS: None. FINDINGS: No discrete mass or abnormal fluid collection is identified. There is a right axillary lymph node measuring 1 cm in short axis without suspicious sonographic features. IMPRESSION: No sonographic abnormality is identified as above. Further evaluation should be pursued as clinically directed. Given the patient's age, mammographic correlation might be considered. copyright 2010 [employer]- All Rights Reserved
[2020-06-02 00:21] LABS: ABSOLUTE LYMPHOCYTES (AUTO) 0.9 10^3/uL (0.5-4.7); ABSOLUTE MONOCYTES (AUTO) 0.5 10^3/uL (0.1-1.4); ABSOLUTE NEUT (AUTO) 8.6 10^3/uL (1.7-8.2); BASOPHILS % (AUTO) 0.5 % (0-2); EOSINOPHILS % (AUTO) 0.4 % (0-6); HEMATOCRIT 33.1 % (36.0-47.0); HEMOGLOBIN 11.4 g/dL (12.0-15.5); LYMPHOCYTES % (AUTO) 9.3 % (13-45); MEAN CORPUSCULAR HEMOGLOBIN 30.1 pg (27.0-33.4); MEAN CORPUSCULAR HGB CONC 34.6 g/dL (32.0-36.0); MEAN CORPUSCULAR VOLUME 87 fl (80-97); MONOCYTES % (AUTO) 4.9 % (3-13); PLATELET COUNT 208 10^3/uL (150-450); RED CELL DISTRIBUTION WIDTH 13.1 % (11.5-14.0); SEGMENTED NEUTROPHILS % (AUTO) 84.9 % (42-78); TOTAL CELLS COUNTED % (AUTO) 100 %; WHITE BLOOD COUNT 10.2 10^3/uL (4.0-10.5)
[2020-06-02 00:27] LABS: ALBUMIN 3.7 g/dL (3.5-5.0); ALKALINE PHOSPHATASE 178 U/L (38-126); ANION GAP 5 (5-19); ASPARTATE AMINO TRANSFERASE 25 U/L (14-36); BILIRUBIN,DIRECT 0.2 mg/dL (0.0-0.4); BILIRUBIN,TOTAL 0.3 mg/dL (0.2-1.3); BLOOD UREA NITROGEN 17 mg/dL (7-20); CALCIUM 9.2 mg/dL (8.4-10.2); CARBON DIOXIDE 27 mmol/L (22-30); CHLORIDE 103 mmol/L (98-107); GLUCOSE 97 mg/dL (75-110); TOTAL PROTEIN 6.7 g/dL (6.3-8.2)
--- NOTE | 2020-06-02 00:47 | ER Document Report ---
ED General - General Chief Complaint: Fever Stated Complaint: FEVER/HAD BABY X2 WEEKS AGO Time Seen by Provider: 06/01/20 22:48 Primary Care Provider: INÉS GUILLEN DO [Primary Care Provider] - Follow up as needed Mode of Arrival: Ambulatory Notes: 34-year-old female with history of Graves' disease, normal term uncomplicated vaginal delivery approximately 2 weeks ago, mastitis for the past 10 days presents with right breast pain fever with lack of improvement in her symptoms. Patient was diagnosed on the with mastitis in the right breast and was started on dicloxacillin which she started on the and took 3 the without any improvement in symptoms, she saw her glass forming crew member again in 3 days ago was started on Keflex which she has been compliant with and has not had any improvement in her symptoms from that either. For the past 4 days she has had measured fevers at home. Patient otherwise feels well. Patient's minimal pelvic pain has been gradually improving since delivery and currently has no discharge. Patient denies any vomiting, abdominal pain, abnormal vaginal discharge, cough, cold symptoms, headache, neck pain or stiffness, urinary symptoms, rashes. Patient is breast-feeding exclusively. - Related Data Allergies/Adverse Reactions: pistachio nut Allergy (Verified 06/01/20 22:33) Sulfa (Sulfonamide Antibiotics) Allergy (Verified 06/01/20 22:33) Home Medications: KEFLEX. PRE-NATALS. JENNIFER 3 Past Medical History - General Information source: Patient - Social History Smoking Status: Never Smoker Frequency of alcohol use: None Drug Abuse: None Family History: Reviewed & Not Pertinent Review of Systems - Review of Systems Notes: REVIEW OF SYSTEMS: CONSTITUTIONAL : + fever, chills, or sweats. EENT: Denies recent cold/sinus symptoms, denies throat pain CARDIOVASCULAR: Denies chest pain, ODETTE RESPIRATORY: Denies cough, denies shortness of breath. GASTROINTESTINAL: Denies abdominal pain, nausea/vomiting. GENITOURINARY: Denies difficulty urinating, painful urination. FEMALE GENITOURINARY: Denies abnormal vaginal bleeding, vaginal discharge. MUSCULOSKELETAL: Denies neck pain, back pain. SKIN: Denies rash or skin lesions. HEMATOLOGIC : Denies easy bruising or bleeding. NEUROLOGICAL: Denies headache, denies change in gait. PSYCHIATRIC: Denies anxiety or stress or depression. Physical Exam - Vital signs Vitals: Temp Pulse BP Pulse Ox 100.5 F H 94 115/74 99 06/01/20 21:55 06/01/20 21:55 06/01/20 21:55 06/01/20 21:55 - Notes Notes: PHYSICAL EXAMINATION: GENERAL: Very well-appearing, well-nourished and in no acute distress. HEAD: Atraumatic, normocephalic. EYES: Pupils equal round and appropriate constriction, sclera anicteric, conjunctiva are normal. ENT: nares patent, moist mucous membranes. NECK: Normal range of motion, supple without lymphadenopathy LUNGS: Breath sounds clear to auscultation bilaterally and equal. No wheezes rales or rhonchi. HEART: Regular rate and rhythm without murmurs CHEST: Normal inspection, tenderness and induration to upper outer quadrant of right breast, very mild tenderness to lower left breast, no fluctuant masses. Exam chaperoned by STU Lubin. ABDOMEN: Soft, nontender, no guarding, no masses, no CVAT EXTREMITIES: Normal range of motion, no pitting or edema. No cyanosis. NEUROLOGICAL: Awake, alert, conversing appropriately, moves all extremities spontaneously. PSYCH: Normal mood, normal affect. SKIN: Warm, Dry, normal turgor, no rashes or lesions noted. Course - Re-evaluation Re-evalutation: 06/02/20 01:04 Patient with worsening breast pain and fever with mastitis has not resolved on antibiotics. Patient was first on the cloxacillin and then on Keflex, has not been on any medications to cover MRSA. Before giving patient dose of clindamycin as discussed that she would not be able to breast-feed while she was taking this and she said that she was okay with this because she had high reserves of milk stored. Obtain ultrasound to rule out abscess which showed enlarged lymph node which I informed patient of. This is very likely due to her infection, however she will need to her glass forming crew member to to see if she wants imag ing after her infection resolves to rule out cancer. I informed patient with her mother outside the room. Gave patient extensive return to ED precautions which he demonstrate understanding of, patient ready for discharge with GLASS MECHANIC follow-up and antibiotics. Lactate negative so blood culture canceled. - Vital Signs Vital signs: Temp Pulse Resp BP Pulse Ox 100.5 F H 94 115/74 99 06/01/20 21:55 06/01/20 21:55 06/01/20 21:55 06/01/20 21:55 - Laboratory Results Result Diagrams: 06/01/20 23:58 06/01/20 23:58 Laboratory Results Interpreted: 06/01/20 06/01/20 06/01/20 23:58 23:58 23:58 Hgb 11.4 L Hct 33.1 L Lymph % (Auto) 9.3 L Absolute Neuts (auto) 8.6 H Seg Neutrophils % 84.9 H Sodium 135.4 L Lactic Acid 0.6 L Alkaline Phosphatase 178 H Critical Laboratory Results Reviewed: No Critical Results - Radiology Results Critical Radiology Results Reviewed: No Critical Results Discharge - Discharge Clinical Impression: Mastitis, Lymph node enlargement Fever Qualifiers: Fever type: unspecified Qualified Code(s): R50.9 - Fever, unspecified Disposition: HOME, SELF-CARE Additional Instructions: Mastitis (Breast Infection) You have an infection in your breast, called mastitis. This is due to bacteria invading the breast through the milk ducts. Mastitis can be serious, and must be treated carefully. Antibiotics are required. You will need to "pump and dump" while you are taking the clindamycin, you cannot breast-feed while you are taking clindamycin. Continue to pump so that your breasts do not become engorged and painful. F ollow-up closely with your glass forming crew member. If you have any worsening pain, no improvement in symptoms after 3 days on antibiotics, vomiting, confusion, dizziness, rash, fainting, any other worsening or alarming symptoms return to the emergency department immediately. Your ultrasound showed an enlarged lymph node which is very much to be expected while you are fighting an acute infection in your right breast. However, you should discuss this with your glass forming crew member to make sure that she does not want you to have any other imaging performed once you are through this infection to make sure that it is not due to a more dangerous cause such as cancer. Take all antibiotics as prescribed. Follow-up with your glass forming crew member within 1 week. Prescriptions: Clindamycin HCl [Cleocin 150 mg Capsule] 450 mg PO TID #90 cap Referrals: INÉS GUILLEN DO [Primary Care Provider] - Follow up as needed
[2020-06-02 01:10] LABS: APPEARANCE,URINE SLIGHTLY-CLOUDY; BILIRUBIN,URINE NEGATIVE (NEGATIVE); COLOR,URINE YELLOW; GLUCOSE, URINE NEGATIVE (NEGATIVE); KETONES,URINE NEGATIVE (NEGATIVE); LEUKOCYTE ESTERASE,URINE LARGE (NEGATIVE); NITRITE,URINE NEGATIVE (NEGATIVE); PROTEIN,URINE NEGATIVE (NEGATIVE); URINE SPECIFIC GRAVITY 1.026; UROBILINOGEN,URINE NEGATIVE mg/dL (<2.0)
[2020-06-02 01:17] VITALS: BP 134/78
== END 2020-06-02 01:17 | disposition home or self-care (01) ==
LOC: ER 21:44
DX: O86.4 Pyrexia of unknown origin following delivery (principal); O91.22 Nonpurulent mastitis associated with the puerperium; R59.1 Generalized enlarged lymph nodes
CPT/HCPCS: 36415; 76642; 80053; 81001; 83605; 85025; 87086; 96365; 99285

== ENCOUNTER 2020-06-02 22:23 | Emergency (ER) | payer BC ==
[2020-06-02 22:29] VITALS: BP 113/78
[2020-06-02] MEDS ORDERED: FAMOTIDINE 20 MG TABLET PO ONE (22:34)
--- NOTE | 2020-06-02 22:44 | ER Document Report ---
HPI - HPI Time Seen by Provider: 06/02/20 22:30 Pain Level: 0 Context: Patient is a 34-year-old female presents emergency department with a possible allergic reaction to clindamycin that she was prescribed yesterday for mastitis. Patient states that she realized that she was not taking the correct dosages of the medication and was only taking 1 tablet per dosage. She then ended up taking her normal dose tonight and started breaking out in a rash on her bilateral hands. She took 50 mg of Benadryl, which helped. She states that this was a similar reaction when she took sulfa drugs. States that her fever went away from her mastitis. Patient was originally on dicloxacillin. She was not having any improvement, therefore she was started on clindamycin. - ROS Systems Reviewed and Negative: Yes All other systems reviewed and negative - CONSTITUTIONAL Constitutional: REPORTS: Fever - better today - EENT EENT: DENIES: Ear Pain - NEURO Neurology: DENIES: Headache, Weakness - RESPIRATORY Respiratory: DENIES: Trouble Breathing, Coughing - GASTROINTESTINAL Gastrointestinal: DENIES: Abdominal Pain, Nausea, Patient vomiting - REPRODUCTIVE Reproductive: DENIES: : - MUSCULOSKELETAL Musculoskeletal: REPORTS: Swelling - bilateral hands. DENIES: Extremity pain Notes: breast tenderness - DERM Skin Color: Normal Skin Problems: Rash - bilateral hands Past Medical History - Social History Smoking Status: Never Smoker Chew tobacco use (# tins/day): No Frequency of alcohol use: None Drug Abuse: None Family History: Reviewed & Not Pertinent Patient has homicidal ideation: No Vertical Provider Document - CONSTITUTIONAL Agree With Documented VS: Yes Exam Limitations: No Limitations General Appearance: No Apparent Distress - HEENT HEENT: Atraumatic, Normocephalic, PERRLA - RESPIRATORY Respiratory: No Respiratory Distress - CARDIOVASCULAR Cardiovascular: Regular Rate - MUSCULOSKELETAL/EXTREMETIES Musculoskeletal/Extremeties: FROM - NEURO Level of Consciousness: Awake, Alert - DERM Integumentary: Warm, Dry, Rash - erythema noted to bilateral hands Course - Re-evaluation Re-evalutation: 06/02/20 Patient states she did have some improvement in the swelling and redness of her hands after taking Benadryl. We will also start her on Pepcid. Advised her to stop taking the clindamycin. Added this medication to her allergy list. We will put her on Augmentin. She will follow-up with her primary care provider. Patient's respirations are even and unlabored. Does not appear to be any respiratory distress. Follow-up precautions were given. Verbal discharge instructions were given to the patient. They verbalized understanding. They are stable for discharge. - Vital Signs Vital signs: Temp Pulse Resp BP Pulse Ox 98.3 F 69 14 113/78 100 06/02/20 22:36 06/02/20 22:27 06/02/20 22:27 06/02/20 22:27 06/02/20 22:27 - Laboratory Results Critical Laboratory Results Reviewed: No Critical Results - Radiology Results Critical Radiology Results Reviewed: No Critical Results Discharge - Discharge Clinical Impression: Allergic reaction caused by a drug Qualifiers: Encounter type: initial encounter Qualified Code(s): T78.40XA - Allergy, unspecified, initial encounter Condition: Stable Disposition: HOME, SELF-CARE Additional Instructions: You are seen today in the emergency department for an allergic reaction to clindamycin. Stop taking the antibiotics you were given. Start taking the Augmentin. Follow-up with your SERVICE OFFICER in regards to this visit. Take famotidine 40 mg twice a day for the next 2 to 4 days. Stay on Benadryl 50 mg every 4-6 hours for the next 2 to 4 days. Prescriptions: Amoxicillin/Potassium Clav [Augmentin 875-125 Tablet] 1 tab PO Q12 #14 tablet Referrals: INÉS GUILLEN DO [Primary Care Provider] - Follow up in 3-5 days
== END 2020-06-02 22:50 | disposition home or self-care (01) ==
LOC: ER 22:23
DX: L27.0 Generalized skin eruption due to drugs and medicaments taken internally (principal); T36.8X5A Adverse effect of other systemic antibiotics, initial encounter; N61.0 Mastitis without abscess
CPT/HCPCS: 99283